=== PATIENT | female | born 1995 | race Caucasian/White ===

== ENCOUNTER 2016-12-05 10:07 | Emergency (ER) | payer OTHER ==
[~2016-12-05] VITALS: Ht 166.4 cm; Wt 84.9 kg
[~2016-12-05 10:07] MED LIST: ENDOCET 5-3251 EACH PO; IBUPROFEN600 MG PO; IBUPROFEN800 MG PO; MACROBID100 MG PO; PRENATA CHEWAB1 EACH PO; PRENATAL GUMMI1 EACH PO; ULTRAM50 MG PO
[2016-12-05 11:46] LABS: HEMATOCRIT 35.6 % (36.0-46.0); MCH 28.9 PG (29.0-34.0); MCHC 34.6 G/DL (30.0-36.0); MCV 83.6 FL (83-99); MEAN PLAT.VOLUME 9.3 uM^3 (9.5-12.4); PLATELET COUNT 342 K/uL (156-360); RBC DIS.WIDTH-CV 13.4 % (11.8-14.6); RBC DIS.WIDTH-SD 39.7 % (39-53); RED BLOOD COUNT 4.26 M/uL (3.80-5.20); WHITE BLOOD COUNT 10.5 K/uL (4.1-10.2)
[2016-12-05 12:00] LABS: CHLORIDE 108 mEq/L (99-109); SODIUM 137 mEq/L (136-147)
[2016-12-05 12:02] LABS: GLUCOSE 99 mg/dL (70-99)
[2016-12-05 12:03] LABS: ANION GAP 9 MEQ/L (2-14)
[2016-12-05 12:04] LABS: TOTAL BILIRUBIN 0.3 mg/dL (0.0-1.0)
[2016-12-05 12:05] LABS: ALKALINE PHOSPHATASE 45 IU/L (3-129)
[2016-12-05 12:06] LABS: GFR ESTIMATE (CALCULATED) > 59 mL/min/
[2016-12-05 12:07] LABS: UREA NITROGEN (BUN) 9 mg/dL (9-23)
[2016-12-05 12:12] LABS: ADD MIUA? NO; BILIRUBIN NEGATIVE; BLOOD NEGATIVE; COLOR YELLOW ((YELLOW)); GLUCOSE (STRIP) NEGATIVE; KETONES NEGATIVE; LEUKOCYTES NEGATIVE; NITRITE NEGATIVE; PROTEIN (STRIP) NEGATIVE; UCUL ADDED? NO; UROBILINOGEN 0.2 MG/DL (0.2-1.0)
[2016-12-05 12:43] LABS: QUANTITATIVE HCG 31631.2 MIU/ML
[2016-12-05 16:38] VITALS: BP 124/55
== END 2016-12-05 16:40 | disposition home or self-care (01) ==
LOC: RME 10:07 → EME 10:07 → RME 16:40
DX: O99.89 Other specified diseases and conditions complicating pregnancy, childbirth and the puerperium (principal); R10.31 Right lower quadrant pain; Z3A.14 14 weeks gestation of pregnancy
CPT/HCPCS: 76815; 80053; 81003; 84702; 85027; 99281; 99284

== ENCOUNTER 2017-05-07 01:46 | Outpatient (CLI) | payer OTHER ==
[~2017-05-07] VITALS: Ht 165.1 cm; Wt 93.0 kg
[2017-05-07 02:04] VITALS: BP 121/68
[2017-05-07 03:34] VITALS: BP 111/53
[2017-05-07 03:58] VITALS: BP 111/51
[2017-05-07 05:59] VITALS: BP 103/52
[2017-05-07 07:27] VITALS: BP 104/55
[2017-05-07 12:01] LABS: C DIFF TOXIN NEGATIVE (NEGATIVE)
[2017-05-07 12:08] LABS: PROBE CHECK PASS; SPECIMEN PROCESSING CONTROL PASS
== END 2017-05-07 10:50 | disposition home or self-care (01) ==
LOC: LDRP-OP → 2WEST 01:47 → LDRP-OP 06-16 10:08
PROVIDERS: Obstetrics & Gynecology
DX: O60.03 Preterm labor without delivery, third trimester (principal); Z3A.38 38 weeks gestation of pregnancy; O21.2 Late vomiting of pregnancy; O36.63X0 Maternal care for excessive fetal growth, third trimester, not applicable or unspecified
CPT/HCPCS: 59025; 87493; G0378; J2405; J7120

== ENCOUNTER 2017-05-24 00:04 | Inpatient (IN) | payer OTHER ==
[~2017-05-24] VITALS: Ht 165.1 cm; Wt 93.4 kg
[2017-05-24 00:23] VITALS: BP 120/60
[2017-05-24 00:59] LABS: EOSINOPHIL (%) 0.6 % (0-5); EOSINOPHIL COUNT 0.1 K/uL (0-0.3); HEMATOCRIT 32.3 % (36.0-46.0); IMMATURE GRANULOCYTE (%) 1.1 % (0.0-0.7); IMMATURE GRANULOCYTE COUNT 0.1 K/uL; INSTRUMENT ABS NEUTROPHIL CT 7.8 K/uL; LYMPHOCYTE COUNT 2.3 K/uL (1.0-2.8); MCH 24.9 PG (29.0-34.0); MCHC 31.3 G/DL (30.0-36.0); MCV 79.8 FL (83-99); MEAN PLAT.VOLUME 10.3 uM^3 (9.5-12.4); MONOCYTE (%) 6.9 % (3-12); MONOCYTE COUNT 0.8 K/uL (0-0.8); NEUTROPHIL (%) 70.4 % (45-76); NEUTROPHIL COUNT 7.8 K/uL (1.8-6.4); PLATELET COUNT 346 K/uL (156-360); RBC DIS.WIDTH-SD 43.3 % (39-53); RED BLOOD COUNT 4.05 M/uL (3.80-5.20)
[2017-05-24 03:22] VITALS: BP 114/61
[2017-05-24 04:25] VITALS: BP 123/69
[2017-05-24 06:27] VITALS: BP 121/58
[2017-05-24 07:15] VITALS: BP 109/60
[2017-05-24 09:15] VITALS: BP 111/54
[2017-05-24 11:46] LABS: EOSINOPHIL (%) 0 % (0-5); HEMATOCRIT 26.2 % (36.0-46.0); IMMATURE GRANULOCYTE (%) 0.7 % (0.0-0.7); IMMATURE GRANULOCYTE COUNT 0.1 K/uL; INSTRUMENT ABS NEUTROPHIL CT 11.6 K/uL; LYMPHOCYTE COUNT 1.7 K/uL (1.0-2.8); MCH 25.5 PG (29.0-34.0); MCHC 31.7 G/DL (30.0-36.0); MCV 80.4 FL (83-99); MEAN PLAT.VOLUME 10.3 uM^3 (9.5-12.4); MONOCYTE (%) 6.1 % (3-12); MONOCYTE COUNT 0.9 K/uL (0-0.8); NEUTROPHIL (%) 81.4 % (45-76); NEUTROPHIL COUNT 11.6 K/uL (1.8-6.4); PLATELET COUNT 332 K/uL (156-360); RBC DIS.WIDTH-CV 14.8 % (11.8-14.6); RBC DIS.WIDTH-SD 43.3 % (39-53); RED BLOOD COUNT 3.26 M/uL (3.80-5.20); WHITE BLOOD COUNT 14.3 K/uL (4.1-10.2)
[2017-05-26 07:16] VITALS: BP 111/53
[2017-05-26 11:01] VITALS: BP 118/57
[2017-05-26] MEDS ORDERED: FERROUS SULFAT325 MG PO (13:55)
[2017-05-26] MEDS ORDERED: IBUPROFEN800 MG PO (13:56)
[2017-05-26] MEDS ORDERED: ENDOCET 5-3251 EACH PO (13:56)
[2017-05-26 14:55] VITALS: BP 114/58
== END 2017-05-26 18:55 | disposition home or self-care (01) | DRG 765 ==
LOC: LDRP-OP 00:04 → 2WEST 00:05 → LDRP-OP 06-16 12:20
PROVIDERS: Advanced Practice Midwife; Obstetrics & Gynecology
PROC: 10D00Z1 Extraction of Products of Conception, Low, Open Approach (ICD-10-PCS; principal; 2017-05-24)
DX: O48.0 Post-term pregnancy (principal); O24.420 Gestational diabetes mellitus in childbirth, diet controlled; E66.9 Obesity, unspecified; O36.63X0 Maternal care for excessive fetal growth, third trimester, not applicable or unspecified; O99.214 Obesity complicating childbirth; O99.824 Streptococcus B carrier state complicating childbirth; D62 Acute posthemorrhagic anemia; O99.02 Anemia complicating childbirth; Z87.440 Personal history of urinary (tract) infections; Z3A.41 41 weeks gestation of pregnancy; Z37.0 Single live birth
CPT/HCPCS: 85025; 85025 91; 86900; 86901; 88307; J0690; J1100; J1885; J2274; J2405; J7120